=== PATIENT | male | born 1985 | race Caucasian/White ===

== ENCOUNTER 2019-06-09 22:23 | Emergency (ER) | payer BC, OTHER ==
[~2019-06-09] VITALS: Ht 180.3 cm; Wt 114.0 kg
[2019-06-10] MEDS ORDERED: TETRACAINE 0.5% OPHTH DROPS 4ML BOTHEYE ONE (02:30)
[2019-06-10] MEDS ORDERED: FLUORESCEIN SODIUM 1MG/STRIP BOTHEYE ONE (02:30)
[2019-06-10] MEDS ORDERED: DEXAMETHASONE 4MG TABLET PO ONE (02:30)
[2019-06-10] MEDS ORDERED: KETOROLAC 60MG/2ML VIAL IM ONE (02:30)
[2019-06-10 05:32] VITALS: BP 121/79
== END 2019-06-10 06:00 | disposition home or self-care (01) ==
LOC: ER 22:23
DX: R51 Headache (principal)
CPT/HCPCS: 70450; 96372; 99284; J1885; J8540